=== PATIENT | male | born 1940 | race Asian ===

== ENCOUNTER → 2024-02-04 10:58 | Outpatient (REF) | payer OTHER, SELFPAY ==
[2024-02-04 15:52] LABS: Mumps Virus IgG Positive; Rubeola (Measles) IgG Positive; Varicella Zoster IgG (VZV) Positive
[2024-02-04 19:20] LABS: Hepatitis B Surface Antibody Negative
[2024-02-04 19:57] LABS: Rubella Low Positive
[2024-02-06 11:53] LABS: Quantiferon Mitogen minus NIL 8.75 IU/mL; Quantiferon NIL 0.07 IU/mL; Quantiferon Plus TB2 minus NIL 2.16 IU/mL (0.00-0.34); Quantiferon TB Gold Plus Positive (Negative)
== END ==
LOC: OHS 10:58
PROVIDERS: ATTENDING PHYSICIAN Nurse Practitioner Family
DX: Z23 Encounter for immunization (principal)
CPT/HCPCS: 36415; 86480; 86706; 86735; 86762; 86765; 86787

== ENCOUNTER → 2024-02-08 11:48 | Outpatient (REF) | payer OTHER, SELFPAY | LOC: OHS 11:48 | PROVIDERS: ATTENDING PHYSICIAN Nurse Practitioner Family | DX: Z13.9 Encounter for screening, unspecified (principal) | CPT/HCPCS: 71046 ==